=== PATIENT | male | born 1985 | race African-American/Black ===

== ENCOUNTER 2019-02-16 08:48 | Emergency (ER) | payer OTHER ==
[~2019-02-16] VITALS: Ht 182.9 cm; Wt 102.1 kg
[2019-02-16 09:40] VITALS: BP 126/78
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
[2019-02-16] MEDS ORDERED: IBUPROFEN600 MG ORAL (10:03)
[2019-02-16] MEDS ORDERED: CYCLOBENZAPRINE10 MG ORAL (10:03)
--- NOTE | 2019-02-16 10:12 | NUR ---
ED Nurse Note: pt down to imaging.
[2019-02-16 10:37] VITALS: BP 126/78
--- NOTE | 2019-02-16 10:39 | NUR ---
ED Nurse Note: Pt back from imaging and cleared by health care Provider for discharge. DC instructions/prescription was given and explained to pt and verbalized understanding of teachings. All medical deviecs such as ID band removed. Pt is AAO x4, ambulatory and left with all personal belongings.
--- NOTE | 2019-02-16 10:41 | Diagnostic Imaging Report ---
Indication: Neck Pain Findings: 5 views of the cervical spine were obtained. There is no acute fracture identified. Alignment is normal. The open-mouth odontoid view shows an intact dens and good alignment of the lateral masses with respect to the body of C2. There is no soft tissue swelling. Impression: Negative cervical spine examination.
--- NOTE | 2019-02-16 10:42 | Diagnostic Imaging Report ---
Indication: Chest pain Comparison: None 2 views of the chest obtained. Findings: Cardiomediastinal silhouette and pulmonary vascularity are within normal limits for age. The diaphragmatic contour is smooth and costophrenic angles are sharp. No pleural effusions are identified. The bones are unremarkable. Impression: No acute disease
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
== END 2019-02-16 10:42 | disposition home or self-care (01) ==
LOC: EMR 09:25
DX: S16.1XXA Strain of muscle, fascia and tendon at neck level, initial encounter (principal); V43.52XA Car driver injured in collision with other type car in traffic accident, initial encounter; Y92.410 Unspecified street and highway as the place of occurrence of the external cause; S20.219A Contusion of unspecified front wall of thorax, initial encounter
CPT/HCPCS: 71046; 72050; 99284